=== PATIENT | male | born 1955 | race Caucasian/White ===

== ENCOUNTER 2017-02-21 23:50 | Inpatient (IN) | payer OTHER ==
[~2017-02-21] VITALS: Ht 167.6 cm; Wt 61.9 kg
[~2017-02-21 23:50] MED LIST: ALBUTEROL INHALER IH; ASPIR-LOW81 MG PO; ASPIR-TRIN325 M1 PO; AUGMENTIN875 MG PO; AZITHROMYCIN250 MG1 PO; Advair 250/50 Diskus IH; BENADRYL25 MG PO; BREO ELLIPTA I1 EACH IH; CIPRO500 MG PO; COMBIVENT RESPIM4 GM IH; Combivent IH; FLEXERIL10 MG PO; FLEXERIL5 MG PO; FLOVENT 11120 INHALA IH; KEFLEX500 MG PO; KENALOG,ARISTOC80 GM TP; LEVAQUIN500 MG PO; LEVAQUIN750 MG PO; LORATADINE10 M2 PO; MOTRIN600 MG PO; MUCUS ER600 MG PO; NAPROSYN500 MG PO; NOHOMEMEDS; NORCO 5/3251 TABLET PO; PERCOCET 5/31 TABLET PO; PREDNISONE PO; PREDNISONE10 MG PO; PREDNISONE20 MG PO; SIMVASTATIN40 MG PO; SINGULAIR10 MG PO; SYMBICORT60 INHALA1 IH; TUSSIN DM LIQU118 ML PO; VENTOLIN HFA18 GM IH; ZITHROMAX Z-PA250 MG PO; Zocor PO
[2017-02-22 00:21] LABS: HEMATOCRIT 42.2 % (38.0-50.0); MCH 30.2 PG (29.0-34.0); MCHC 33.4 G/DL (30.0-36.0); MCV 90.4 FL (86-99); MEAN PLAT.VOLUME 9.5 uM^3 (9.0-12.4); PLATELET COUNT 179 K/uL (156-360); RBC DIS.WIDTH-CV 13.8 % (11.8-14.6); RBC DIS.WIDTH-SD 45.7 % (39-53); RED BLOOD COUNT 4.67 M/uL (4.00-5.50); WHITE BLOOD COUNT 4.7 K/uL (4.1-10.2)
[2017-02-22 00:32] LABS: CHLORIDE 107 mEq/L (99-109); POTASSIUM 3.6 mEq/L (3.7-5.4); SODIUM 139 mEq/L (136-147)
[2017-02-22 00:34] LABS: GLUCOSE 117 mg/dL (70-99)
[2017-02-22 00:35] LABS: ANION GAP 12 MEQ/L (2-14)
[2017-02-22 00:38] LABS: GFR ESTIMATE (CALCULATED) > 59 mL/min/
[2017-02-22 00:39] LABS: UREA NITROGEN (BUN) 21 mg/dL (9-23)
[2017-02-22 00:42] LABS: TROP-I INTERPRETATION NEGATIVE; TROPONIN-I < 0.01 ng/mL (0.0-0.30)
[2017-02-22] MEDS ORDERED: THEOPHYLLINE400 MG PO (02:53)
[2017-02-22] MEDS ORDERED: SULINDAC200 MG PO (02:53)
[2017-02-22 03:43] VITALS: BP 120/68
[2017-02-22 05:46] LABS: INFLUENZA A VIRAL ANTIGEN NEGATIVE; INFLUENZA B VIRAL ANTIGEN NEGATIVE
[2017-02-22 07:07] LABS: TROP-I INTERPRETATION NEGATIVE; TROPONIN-I < 0.01 ng/mL (0.0-0.30)
[2017-02-22 07:45] VITALS: BP 120/62
[2017-02-22 11:19] VITALS: BP 136/71
[2017-02-22 13:14] LABS: TROP-I INTERPRETATION NEGATIVE; TROPONIN-I < 0.01 ng/mL (0.0-0.30)
[2017-02-22] MEDS ORDERED: XYZAL5 MG PO (14:35)
[2017-02-22] MEDS ORDERED: LO-DOSE ASPIRIN81 M2 PO (14:36)
[2017-02-22 15:28] VITALS: BP 113/64
[2017-02-22 19:44] VITALS: BP 119/69
[2017-02-23] VITALS (7 sets, daily range): BP systolic 107–128; BP diastolic 58–89
[2017-02-23 06:53] LABS: HEMATOCRIT 37.5 % (38.0-50.0); MCH 30.1 PG (29.0-34.0); MCHC 33.6 G/DL (30.0-36.0); MCV 89.5 FL (86-99); MEAN PLAT.VOLUME 9.5 uM^3 (9.0-12.4); PLATELET COUNT 197 K/uL (156-360); RBC DIS.WIDTH-SD 46.5 % (39-53); RED BLOOD COUNT 4.19 M/uL (4.00-5.50); WHITE BLOOD COUNT 9.9 K/uL (4.1-10.2)
[2017-02-23 07:31] LABS: ANION GAP 10 MEQ/L (2-14); CHLORIDE 104 MEQ/L (99-109); GFR ESTIMATE (CALCULATED) > 59 mL/min/; GLUCOSE 152 mg/dL (70-99); POTASSIUM 4.3 MEQ/L (3.7-5.4); SAMPLE HEMOLYSIS CHECK 0; SAMPLE ICTERIC CHECK 0; SAMPLE LIPEMIA CHECK 0; SODIUM 138 MEQ/L (136-147); UREA NITROGEN (BUN) 15 mg/dL (9-23)
[2017-02-24 03:42] VITALS: BP 117/69
[2017-02-24 07:25] VITALS: BP 124/86
[2017-02-24] MEDS ORDERED: MEDROL DOSEPAK4 MG PO (08:52)
[2017-02-24] MEDS ORDERED: XYZAL5 MG PO (08:52)
[2017-02-24] MEDS ORDERED: AZITHROMYCIN500 M1 PO (08:52)
[2017-02-24 11:30] VITALS: BP 120/55
[2017-02-24 11:35] LABS: BASE EXCESS 2.8 mEq/L (-3 to +3); BICARBONATE 27.2 mEq/L (22-26); CARBOXY HGB 1.5 % (0-5); METHEMOGLOBIN 1.4 % (0-1.5); PCO2 40 mm Hg (35-45); PO2 64 mm Hg (80-100); pH 7.44 (7.35-7.45)
[2017-02-24 11:36] LABS: COMMENTS - BLOOD GASES +C PT NERVOUS ABG; DEVICE NC; O2 FLOW 1 L/MIN; SITE RR +A; TOTAL RESP RATE 28 resp/min
[2017-02-24 15:57] VITALS: BP 124/78
[2017-02-24 20:01] VITALS: BP 136/85
[2017-02-24 23:31] VITALS: BP 118/63
[2017-02-25 03:51] VITALS: BP 125/67
[2017-02-25 08:01] VITALS: BP 143/89
[2017-02-25 16:27] VITALS: BP 122/84
== END 2017-02-25 17:20 | disposition home or self-care (01) | DRG 192 ==
LOC: EME → EDBD 23:50 → 5SOUTH 02-22 02:16 → EDOF 02-22 02:16 → 5SOUTH 02-22 03:08
PROVIDERS: Emergency Medicine; Internal Medicine; Physician Assistant Medical
DX: J44.1 Chronic obstructive pulmonary disease with (acute) exacerbation (principal); D71 Functional disorders of polymorphonuclear neutrophils; J30.2 Other seasonal allergic rhinitis; I49.3 Ventricular premature depolarization; E78.5 Hyperlipidemia, unspecified; Z87.442 Personal history of urinary calculi; M79.662 Pain in left lower leg; M79.661 Pain in right lower leg; G89.29 Other chronic pain; M54.9 Dorsalgia, unspecified; R07.81 Pleurodynia; Z73.6 Limitation of activities due to disability; S87.82XD Crushing injury of left lower leg, subsequent encounter; S87.81XD Crushing injury of right lower leg, subsequent encounter; X58.XXXD Exposure to other specified factors, subsequent encounter; S22.5XXD Flail chest, subsequent encounter for fracture with routine healing; J44.0 Chronic obstructive pulmonary disease with (acute) lower respiratory infection; J20.9 Acute bronchitis, unspecified; F17.219 Nicotine dependence, cigarettes, with unspecified nicotine-induced disorders
CPT/HCPCS: 36600; 71010; 80048; 80198; 82803; 84484; 85027; 87502; 93005; 94640; 94640 76; 94644; 94799; 99202; 99281; 99285; J0456; J1650; J1885; J2930; J3475; J7644

== ENCOUNTER 2017-10-19 14:55 | Emergency (ER) | payer OTHER ==
[~2017-10-19] VITALS: Ht 172.7 cm; Wt 68.0 kg
[~2017-10-19 14:55] MED LIST changes: +AZITHROMYCIN500 M1 PO; +LO-DOSE ASPIRIN81 M2 PO; +MEDROL DOSEPAK4 MG PO; +SULINDAC200 MG PO; +THEOPHYLLINE400 MG PO; +XYZAL5 MG PO
[2017-10-19 15:55] LABS: HEMATOCRIT 41.9 % (38.0-50.0); HEMOGLOBIN 14.4 G/DL (12.5-16.6); MCH 30.4 PG (29.0-34.0); MCHC 34.4 G/DL (30.0-36.0); MCV 88.6 FL (86-99); PLATELET COUNT 263 K/uL (156-360); RBC DIS.WIDTH-CV 12.9 % (11.8-14.6); RBC DIS.WIDTH-SD 42.1 % (39-53); RED BLOOD COUNT 4.73 M/uL (4.00-5.50); WHITE BLOOD COUNT 5.6 K/uL (4.1-10.2)
[2017-10-19 16:04] LABS: CHLORIDE 104 mEq/L (99-109); SODIUM 140 mEq/L (136-147)
[2017-10-19 16:05] LABS: GLUCOSE 99 mg/dL (70-99)
[2017-10-19 16:09] LABS: GFR ESTIMATE (CALCULATED) > 59 mL/min/ (58.99-99999)
[2017-10-19 16:10] LABS: UREA NITROGEN (BUN) 19 mg/dL (9-23)
[2017-10-19] MEDS ORDERED: THEOPHYLLINE400 MG PO (18:09)
[2017-10-19] MEDS ORDERED: MONTELUKAST SOD10 MG PO (18:09)
[2017-10-19] MEDS ORDERED: COMBIVENT RESPIM4 GM IH (18:09)
[2017-10-19] MEDS ORDERED: LO-DOSE ASPIRIN81 M1 PO (18:09)
[2017-10-19] MEDS ORDERED: SIMVASTATIN40 MG PO (18:09)
[2017-10-19] MEDS ORDERED: BREO ELLIPTA I1 EACH IH (18:09)
[2017-10-19] MEDS ORDERED: LEVOCETIRIZINE D5 MG PO (18:09)
[2017-10-19] MEDS ORDERED: VENTOLIN HFA18 GM IH (18:09)
[2017-10-19 18:58] VITALS: BP 107/66
== END 2017-10-19 18:59 | disposition home or self-care (01) ==
LOC: EME 14:55
DX: Z76.0 Encounter for issue of repeat prescription (principal); J44.9 Chronic obstructive pulmonary disease, unspecified; E78.00 Pure hypercholesterolemia, unspecified; J02.9 Acute pharyngitis, unspecified; Z79.82 Long term (current) use of aspirin; Z87.891 Personal history of nicotine dependence
CPT/HCPCS: 71046; 80048; 85027; 93005; 99281; 99284

== ENCOUNTER 2017-11-08 22:03 | Emergency (ER) | payer OTHER ==
[~2017-11-08] VITALS: Ht 167.6 cm; Wt 62.5 kg
[~2017-11-08 22:03] MED LIST changes: +LEVOCETIRIZINE D5 MG PO; +LO-DOSE ASPIRIN81 M1 PO; +MONTELUKAST SOD10 MG PO
[2017-11-08 22:37] LABS: MCH 30.4 PG (29.0-34.0); MCHC 34.1 G/DL (30.0-36.0); MCV 89.1 FL (86-99); PLATELET COUNT 219 K/uL (156-360); RBC DIS.WIDTH-CV 13.8 % (11.8-14.6); RBC DIS.WIDTH-SD 44.8 % (39-53); WHITE BLOOD COUNT 9.9 K/uL (4.1-10.2)
[2017-11-08 22:48] LABS: ALBUMIN 4.1 g/dL (3.2-4.8)
[2017-11-08 22:49] LABS: CHLORIDE 107 mEq/L (99-109); POTASSIUM 3.6 mEq/L (3.7-5.4); SODIUM 138 mEq/L (136-147)
[2017-11-08 22:51] LABS: GLUCOSE 110 mg/dL (70-99); TOTAL PROTEIN 6.6 g/dL (6.4-8.3)
[2017-11-08 22:53] LABS: TOTAL BILIRUBIN 0.4 mg/dL (0.0-1.0)
[2017-11-08 22:54] LABS: ALKALINE PHOSPHATASE 82 IU/L (3-129)
[2017-11-08 22:55] LABS: CREATININE 0.8 mg/dL (0.6-1.3); GFR ESTIMATE (CALCULATED) > 59 mL/min/ (58.99-99999)
[2017-11-08 22:56] LABS: AST (GOT) 15 IU/L (2-34); UREA NITROGEN (BUN) 15 mg/dL (9-23)
[2017-11-08 22:57] LABS: ALT (GPT) 17 IU/L (3-49)
[2017-11-08 22:58] LABS: LIPASE 46 U/L (1.0-51.0)
[2017-11-08 23:05] LABS: TROP-I INTERPRETATION NEGATIVE; TROPONIN-I < 0.01 ng/mL (0.0-0.30)
[2017-11-08] MEDS ORDERED: MEDROL DOSEPAK4 MG PO (23:22)
[2017-11-08] MEDS ORDERED: PROAIR RESPICL90 MCG IH (23:22)
[2017-11-08 23:33] VITALS: BP 107/72
== END 2017-11-08 23:39 | disposition home or self-care (01) ==
LOC: EME → EDBD 22:03 → EME 22:03
PROVIDERS: Emergency Medicine
DX: J44.1 Chronic obstructive pulmonary disease with (acute) exacerbation (principal); Z87.891 Personal history of nicotine dependence; E78.5 Hyperlipidemia, unspecified; Z87.442 Personal history of urinary calculi; Z79.82 Long term (current) use of aspirin
CPT/HCPCS: 71046; 80053; 83690; 83880; 84484; 85027; 93005; 94640; J2930

== ENCOUNTER 2018-05-20 23:53 | Emergency (ER) | payer OTHER ==
[~2018-05-20] VITALS: Ht 167.6 cm; Wt 64.6 kg
[~2018-05-20 23:53] MED LIST changes: +PROAIR RESPICL90 MCG IH
[2018-05-21 00:18] LABS: HEMOGLOBIN 13.5 G/DL (12.5-16.6); MCH 30.4 PG (29.0-34.0); MCHC 34.6 G/DL (30.0-36.0); MCV 87.8 FL (86-99); PLATELET COUNT 246 K/uL (156-360); RBC DIS.WIDTH-CV 13.2 % (11.8-14.6); RBC DIS.WIDTH-SD 42.4 % (39-53); RED BLOOD COUNT 4.44 M/uL (4.00-5.50); WHITE BLOOD COUNT 7.9 K/uL (4.1-10.2)
[2018-05-21 00:33] LABS: ALBUMIN 4.1 G/DL (3.2-4.8); CHLORIDE 105 MEQ/L (99-109); DIRECT BILIRUBIN 0.1 mg/dL (0.0-0.3); POTASSIUM 3.5 MEQ/L (3.7-5.4); SODIUM 140 MEQ/L (136-147); TOTAL BILIRUBIN 0.5 MG/DL (0.0-1.0)
[2018-05-21 00:40] LABS: ALKALINE PHOSPHATASE 150 IU/L (3-129); ALT (GPT) 16 IU/L (3-49); AST (GOT) 22 IU/L (2-34); CREATININE 0.8 MG/DL (0.6-1.3); GFR ESTIMATE (CALCULATED) > 59 mL/min/ (58.99-99999); GLUCOSE 106 mg/dL (70-99); LIPASE 36 U/L (1.0-51.0); TOTAL PROTEIN 6.9 G/DL (6.4-8.3); UREA NITROGEN (BUN) 15 mg/dL (9-23)
[2018-05-21 02:26] LABS: APPEARANCE CLEAR ((CLEAR)); BILIRUBIN NEGATIVE; BLOOD NEGATIVE; COLOR YELLOW ((YELLOW)); GLUCOSE (STRIP) NEGATIVE; KETONES NEGATIVE; LEUKOCYTES NEGATIVE; NITRITE NEGATIVE; PROTEIN (STRIP) NEGATIVE; UCUL ADDED? NO; UROBILINOGEN 0.2 MG/DL (0.2-1.0)
[2018-05-21 02:28] LABS: SPECIFIC GRAVITY > 1.060 (1.000-1.030)
[2018-05-21] MEDS ORDERED: ZOFRAN ODT8 MG PO (04:18)
[2018-05-21] MEDS ORDERED: ZANTAC300 MG PO (04:18)
[2018-05-21 04:50] VITALS: BP 115/75
== END 2018-05-21 04:52 | disposition home or self-care (01) ==
LOC: EME 23:53
DX: R10.10 Upper abdominal pain, unspecified (principal); R11.0 Nausea; I49.3 Ventricular premature depolarization; R94.31 Abnormal electrocardiogram [ECG] [EKG]; K82.0 Obstruction of gallbladder; K83.9 Disease of biliary tract, unspecified; K76.0 Fatty (change of) liver, not elsewhere classified; R16.0 Hepatomegaly, not elsewhere classified; J44.9 Chronic obstructive pulmonary disease, unspecified; E78.5 Hyperlipidemia, unspecified; Z79.82 Long term (current) use of aspirin; Z87.891 Personal history of nicotine dependence; Z87.442 Personal history of urinary calculi
CPT/HCPCS: 74177; 76705; 80053; 81003; 82248; 83690; 85027; 93005; 99281; 99285; J1885; J2405; J3010; J7030